=== PATIENT | female | born 1945 | race African-American/Black ===

== ENCOUNTER 2020-10-24 12:45 | Observation (INO) ==
[2020-10-24 14:03] LABS: Basophils % 0.3 % (0.0-0.8); Eosinophils # 0.1 10*3/uL (0.0-0.87); Eosinophils % 1.1 % (0.00-10.9); Hematocrit 37.2 VOL% (35.7-47.0); Hemoglobin 12.1 GM/DL (12.0-16.0); Immature Granulocytes % 0.5 %; Immature Granulocytes Absolute 0.03 #; Lymphocytes # 0.7 10*3/uL (1.4-4.0); Lymphocytes % 10.2 % (21.3-54.2); Mean Corpuscular HGB Conc 32.5 GM/DL (32-36); Mean Corpuscular Volume 88.6 FL (87-102); Mean Platelet Volume 10.3 FL (9.6-12.0); Monocytes % 6.1 % (1.7-12.7); Neutrophils % 81.8 % (38.7-73.9); Platelet Count 243 T/CUMM (130-400); Red Cell Distribution Width 13.9 % (9.3-17.3); White Blood Count 6.4 T/CUMM (4-12)
[2020-10-24 14:06] LABS: Bilirubin,Urine Negative (Negative); Blood, Urine Small mg/dL (Negative); Glucose,Urine (UA) Negative (Negative); Ketones,Urine 20 mg/dL (Negative); Mucus,Urine Occasional /LPF (Occasional); Nitrite,Urine Negative (Negative); Protein,Urine Negative; RBC,Urine 1 /HPF (0-4); Squamous Epithelial Cell,Urine Few /HPF (0-10); Urine Appearance Slightly Hazy (Clear); Urine Color Yellow (Yellow); Urine Specific Gravity 1.009 (1.001-1.035); Urine Urobilinogen < 2.0 EU/DL (0.2-1.0); WBC,Urine 1 /HPF (0-6)
[2020-10-24 14:30] LABS: Albumin 3.4 G/DL (3.4-5.0); Bilirubin,Total 0.7 MG/DL (0.2-1.0); Calcium 9.1 MG/DL (8.5-10.1); Osmolality,Calculated 277.5 MOS/KG (273-304); Potassium 3.7 MMOL/L (3.5-5.1); Total Protein 7.2 G/DL (5.0-7.5)
[2020-10-24] MEDS ORDERED: MORPHINE 4 MG/1 ML VIAL IV PRN (16:14)
[2020-10-24] MEDS ORDERED: NITROGLYCERIN SL 0.4 MG TABLET SL PRN (17:45)
[2020-10-24] MEDS: SODIUM CHLORIDE 0.45% 1,000 ML IV SCH (17:50)
[2020-10-24] MEDS: ENOXAPARIN 40 MG/0.4 ML SYRINGE SUBCUT SCH (18:08)
[2020-10-24 18:40] LABS: Troponin I < 0.015 NG/ML (0.00-0.045)
[2020-10-24] MEDS: ONDANSETRON 4 MG/2 ML VIAL IV PRN (20:43)
[2020-10-24] MEDS: LORazepam 0.5 MG TABLET PO SCH (20:45)
[2020-10-24] MEDS: LACTULOSE 20 GM/30 ML UDCUP PO SCH (20:46)
[2020-10-24] MEDS: DOCUSATE SODIUM 100 MG CAPSULE PO SCH (20:46)
[2020-10-24] MEDS: ZALEPLON 5 MG CAPSULE PO SCH (20:46)
[2020-10-24 21:25] LABS: Troponin I < 0.015 NG/ML (0.00-0.045)
[2020-10-25 00:10] LABS: Troponin I < 0.015 NG/ML (0.00-0.045)
[2020-10-25 02:58] LABS: Troponin I < 0.015 NG/ML (0.00-0.045)
[2020-10-25] MEDS: ACETAMINOPHEN 325 MG TABLET PO PRN ×3 (05:11→18:02)
[2020-10-25] MEDS: SODIUM CHLORIDE 0.45% 1,000 ML IV SCH (05:11)
[2020-10-25] MEDS: ONDANSETRON 4 MG/2 ML VIAL IV PRN ×3 (05:11→18:03)
[2020-10-25 05:55] LABS: Basophils % 0.6 % (0.0-0.8); Eosinophils # 0.2 10*3/uL (0.0-0.87); Hematocrit 35.4 VOL% (35.7-47.0); Hemoglobin 11.7 GM/DL (12.0-16.0); Immature Granulocytes % 0.2 %; Immature Granulocytes Absolute 0.01 #; Lymphocytes # 1.8 10*3/uL (1.4-4.0); Lymphocytes % 34.2 % (21.3-54.2); Mean Corpuscular HGB Conc 33.1 GM/DL (32-36); Mean Corpuscular Volume 87.8 FL (87-102); Mean Platelet Volume 10.4 FL (9.6-12.0); Monocytes % 15.5 % (1.7-12.7); Neutrophils % 46.5 % (38.7-73.9); Platelet Count 238 T/CUMM (130-400); Red Blood Count 4.03 MC/CUMM (3.8-5.5); Red Cell Distribution Width 14.2 % (9.3-17.3); White Blood Count 5.4 T/CUMM (4-12)
[2020-10-25 06:22] LABS: Osmolality,Calculated 274.5 MOS/KG (273-304); Potassium 3.7 MMOL/L (3.5-5.1)
[2020-10-25] MEDS ORDERED: diphenhydrAMINE CAP 25 MG CAPSULE PO PRN (09:51)
[2020-10-25] MEDS: NISOLDIPINE 8.5 MG PO SCH (09:53)
[2020-10-25] MEDS: DOCUSATE SODIUM 100 MG CAPSULE PO SCH ×2 (09:53→21:11)
[2020-10-25] MEDS: CETIRIZINE 10 MG TABLET PO SCH (09:53)
[2020-10-25] MEDS: LOSARTAN 50 MG TABLET PO SCH (09:53)
[2020-10-25] MEDS: SPIRONOLACTONE 50 MG TABLET PO SCH (09:53)
[2020-10-25] MEDS: ASPIRIN EC 81 MG TABLET PO SCH (09:53)
[2020-10-25] MEDS: LORazepam 0.5 MG TABLET PO SCH ×3 (09:53→21:12)
[2020-10-25] MEDS: ESCITALOPRAM 10 MG TABLET PO SCH (09:53)
[2020-10-25] MEDS: PANTOPRAZOLE 40 MG TABLET PO SCH (09:53)
[2020-10-25] MEDS: LACTULOSE 20 GM/30 ML UDCUP PO SCH ×2 (09:54→21:11)
[2020-10-25] MEDS: ENOXAPARIN 40 MG/0.4 ML SYRINGE SUBCUT SCH (15:34)
[2020-10-25] MEDS: ZALEPLON 5 MG CAPSULE PO SCH (21:12)
[2020-10-26 08:36] VITALS: BP 164/78
[2020-10-26] MEDS: PANTOPRAZOLE 40 MG TABLET PO SCH (09:03)
[2020-10-26] MEDS: SPIRONOLACTONE 50 MG TABLET PO SCH (09:03)
[2020-10-26] MEDS: ASPIRIN EC 81 MG TABLET PO SCH (09:03)
[2020-10-26] MEDS: NISOLDIPINE 8.5 MG PO SCH (09:04)
[2020-10-26] MEDS: CETIRIZINE 10 MG TABLET PO SCH (09:04)
[2020-10-26] MEDS: DOCUSATE SODIUM 100 MG CAPSULE PO SCH (09:04)
[2020-10-26] MEDS: LOSARTAN 50 MG TABLET PO SCH (09:04)
[2020-10-26] MEDS: LORazepam 0.5 MG TABLET PO SCH (09:04)
[2020-10-26] MEDS: ESCITALOPRAM 10 MG TABLET PO SCH (09:04)
[2020-10-26] MEDS: LACTULOSE 20 GM/30 ML UDCUP PO SCH (09:05)
[2020-10-26] MEDS: ONDANSETRON 4 MG/2 ML VIAL IV PRN (09:05)
== END 2020-10-26 11:08 | disposition home or self-care (01) ==
LOC: N.EDINP 12:45 → N.ED 12:45 → N.5E 16:58
PROVIDERS: ADMIT Family Medicine; ATTEND Family Medicine